=== PATIENT | male | born 1990 | race Caucasian/White ===

== ENCOUNTER 2017-02-22 04:39 | Emergency (ER) | payer SELFPAY ==
[~2017-02-22] VITALS: Ht 182.9 cm; Wt 81.8 kg
[~2017-02-22 04:39] MED LIST: AMOXICILLIN500 MG OR; AMOXICILLIN875 MG OR; LORTAB5 OR; NO; PENICILLN VK500 M1 OR; ROCEPHIN 2250 MG/VIA IM
[2017-02-22 06:00] LABS: HEMATOCRIT 40.5 % (39.0-50.0); HEMOGLOBIN 13.6 g/dl (14.0-18.0); IMMATURE GRANULOCYTES 0.2 % (0.0-1.0); MEAN CORPUSCULAR HGB 30.9 pG CALC (26.0-32.0); MEAN CORPUSCULAR HGB CONC 33.6 g/L CALC (32.0-36.0); NEUT# 8.45 thou/uL (1.82-7.42); RED BLOOD COUNT 4.4 mill/uL (4.70-6.10); RED CELL DISTRI WIDTH 12.4 % (11.5-15.5)
[2017-02-22 06:07] LABS: ALKALINE PHOSPHATASE 81 u/l (38-126); ANION GAP 14 (6-22 (CALC)); BILIRUBIN, TOTAL 1.2 mg/dL (0.0-1.4); BUN 16 mg/dL (9-20); BUN/CREATININE RATIO 20 (12-20 (CALC)); CALCIUM 8.9 mg/dL (8.4-10.2); CARBON DIOXIDE 27 mmol/l (22-30); CHLORIDE 99 mmol/l (95-108); CREATININE 0.8 mg/dL (0.7-1.3); GFR > 60 ML/MIN (>=60 (CALC)); GFR FOR AFR.AMER. > 60 ML/MIN (>=60 (CALC)); GLUCOSE 106 mg/dL (75-110); POTASSIUM 3.6 mmol/l (3.5-5.1); SGOT/AST 106 u/l (17-59); SGPT/ALT 156 u/l (21-72); SODIUM 136 mmol/l (137-146); TOTAL PROTEIN 7.2 g/dL (6.3-8.2)
[2017-02-22 07:12] LABS: URINE BLOOD DIPSTICK TRACE-INTACT (NEGATIVE); URINE CLARITY TURBID; URINE COLOR YELLOW; URINE GLUCOSE - DIPSTICK NEGATIVE (NEGATIVE); URINE KETONE NEGATIVE (NEGATIVE); URINE NITRITE - DIPSTICK NEGATIVE (Negative); URINE PH 5.5 (4.5-8.0); URINE PROTEIN - DIPSTICK TRACE mg/dL (NEG-TRACE); URINE SPECIFIC GRAVITY >=1.030
[2017-02-22 07:15] LABS: URINE BILIRUBIN - DIPSTICK SMALL (NEGATIVE); URINE LEUK ESTERASE MODERATE (NEGATIVE)
[2017-02-22 07:18] LABS: URINE RBC 0-2 RBC/hpf (0-5)
[2017-02-22 07:19] LABS: URINE BACTERIA FEW hpf; URINE SQUAMOUS EPITHELIAL CELL FEW EPI/hpf (0-FEW); URINE WBC 50-100 WBC/hpf (0-5)
[2017-02-22] MEDS ORDERED: MOTRIN800 MG PO (09:00)
[2017-02-22] MEDS ORDERED: DOXYCYC MONO100 M1 PO (09:00)
[2017-02-22 09:09] VITALS: BP 125/57
== END 2017-02-22 09:20 | disposition home or self-care (01) | DRG 728 ==
LOC: ED 04:39
DX: N45.1 Epididymitis (principal); F32.9 Major depressive disorder, single episode, unspecified; F17.210 Nicotine dependence, cigarettes, uncomplicated

== ENCOUNTER 2019-09-22 19:43 | Emergency (ER) | payer SELFPAY ==
[~2019-09-22 19:43] MED LIST changes: +DOXYCYC MONO100 M1 PO; +MOTRIN800 MG PO
[2019-09-22 19:55] VITALS: BP 130/88
== END 2019-09-22 20:21 | disposition left against medical advice (07) | DRG 951 ==
LOC: ED 19:43 → LWOBS 20:21
DX: Z91.19 Patient's noncompliance with other medical treatment and regimen (principal)

== ENCOUNTER 2020-03-14 11:39 | Emergency (ER) | payer SELFPAY ==
[~2020-03-14] VITALS: Ht 182.9 cm; Wt 86.4 kg
[2020-03-14] MEDS ORDERED: AMOXICILLIN875 MG PO (12:00)
[2020-03-14 12:32] VITALS: BP 116/68
== END 2020-03-14 12:32 | disposition home or self-care (01) | DRG 153 ==
LOC: ED 11:39
DX: J02.9 Acute pharyngitis, unspecified (principal); F17.210 Nicotine dependence, cigarettes, uncomplicated
CPT/HCPCS: J0561

== ENCOUNTER 2020-04-17 23:17 | Emergency (ER) | payer SELFPAY ==
[~2020-04-17] VITALS: Ht 182.9 cm; Wt 81.8 kg
[~2020-04-17 23:17] MED LIST changes: +AMOXICILLIN875 MG PO
[2020-04-18] MEDS ORDERED: VOLTAREN - GENE75 MG PO (00:14)
[2020-04-18 00:45] VITALS: BP 132/77
== END 2020-04-18 00:45 | disposition home or self-care (01) | DRG 563 ==
LOC: ED 23:17
DX: S83.92XA Sprain of unspecified site of left knee, initial encounter (principal); F17.210 Nicotine dependence, cigarettes, uncomplicated; W17.2XXA Fall into hole, initial encounter
CPT/HCPCS: L1830